=== PATIENT | male | born 1955 | race Caucasian/White ===

== ENCOUNTER 2019-05-02 03:27 | Inpatient (IN) | payer MEDICAID, MEDICARE, OTHER ==
[~2019-05-02] VITALS: Ht 162.6 cm; Wt 58.1 kg
[2019-05-02] VITALS (18 sets, daily range): BP systolic 118–159; BP diastolic 63–96
[2019-05-02] MEDS ORDERED: THIA100T66 PO (04:05)
[2019-05-02] MEDS ORDERED: SPIR50TA5 PO (04:05)
[2019-05-02] MEDS ORDERED: ALLO100T PO (04:05)
[2019-05-02] MEDS ORDERED: PROP10TA10 PO (04:05)
[2019-05-02] MEDS ORDERED: OMEP40CA13 PO (04:05)
[2019-05-02] MEDS ORDERED: FOLIC ACID PO (04:05)
[2019-05-02] MEDS ORDERED: MULT-933 PO (04:05)
[2019-05-02] MEDS ORDERED: FURO-150 PO (04:05)
[2019-05-02] MEDS: diatr meglu/diatrizoate 30ml oral sol.-(3 dose) bottle PO SCH ×3 (04:18→05:40)
[2019-05-02 04:21] LABS: BASOPHILS # (AUTO) 0.1 X10'3 (0-0.2); BASOPHILS % (AUTO) 0.7 % (0-1); EOSINOPHILS # (AUTO) 0.7 X10'3 (0-0.9); EOSINOPHILS % (AUTO) 5.7 % (0-6); HEMATOCRIT 38.8 % (42.0-52.0); HEMOGLOBIN 12.9 g/dl (14.0-17.9); LYMPHOCYTES # (AUTO) 2.1 X10'3 (1.1-4.8); LYMPHOCYTES % (AUTO) 18.3 % (21-51); MEAN CORPUSCULAR HEMOGLOBIN 33.2 PG (27.0-31.0); MEAN CORPUSCULAR HGB CONC 33.2 g/dL (33.0-36.5); MEAN CORPUSCULAR VOLUME 99.8 FL (78-98); MEAN PLATELET VOLUME 8.6 FL (7.4-10.4); MONOCYTES # (AUTO) 1.1 X10'3 (0-0.9); MONOCYTES % (AUTO) 9.7 % (2-12); NEUTROPHILS # (AUTO) 7.6 X10'3 (1.8-7.7); NEUTROPHILS % (AUTO) 65.6 % (42-75); PLATELET COUNT 314 X10'3 (140-440); RED BLOOD COUNT 3.89 X10'6 (4.70-6.10); WHITE BLOOD COUNT 11.6 X10'3 (4.5-11.0)
[2019-05-02 04:35] LABS: ALANINE AMINOTRANSFERASE 21 U/L (12-78); ALBUMIN 3.1 G/DL (3.4-5.0); ALBUMIN/GLOBULIN RATIO 0.5 (1.1-1.5); ALKALINE PHOSPHATASE 107 IU/L (46-116); ANION GAP 10 (8-16); ASPARTATE AMINO TRANSFERASE 29 U/L (10-37); BILIRUBIN,TOTAL 0.6 MG/DL (0.1-1.0); BLOOD UREA NITROGEN 22 MG/DL (7-18); BUN/CREATININE RATIO 19.3 (5.4-32.0); CALCIUM 9.5 MG/DL (8.5-10.1); CHLORIDE 102 MMOL/L (99-107); CREATININE 1.14 MG/DL (0.60-1.10); GLUCOSE 110 MG/DL (70-104); LIPASE 105 U/L (73-393); POTASSIUM 3.9 MMOL/L (3.5-5.1); SODIUM 134 MMOL/L (135-145); TOTAL CARBON DIOXIDE 22.4 MMOL/L (24-32); TOTAL PROTEIN 9.1 G/DL (6.4-8.2); eGFR 64 ML/MIN
[2019-05-02] MEDS ORDERED: iohexol 300mg/ml 100ml inj. ONE (04:40)
--- NOTE | 2019-05-02 04:51 | NUR ---
Dr Quintana called and asked why the patient hasn't gone to CT yet. I told him the doctor ordered the CT with gastrograffin. He told me to skip the med and take that patient to CT STAT that he will be here in 10 minutes. Rosendo from CT called. He is on the way.
--- NOTE | 2019-05-02 05:09 | NUR ---
Dr Su just finished examining the patient.
[2019-05-02] MEDS ORDERED: ceFAZolin 2gm in dextrose, iso 100 ML IV ONE (05:20)
[2019-05-02] MEDS ORDERED: SPIR100T5 PO (05:24)
[2019-05-02] MEDS ORDERED: ringers solution, lacted 1,000 ML IV SCH (05:26)
[2019-05-02] MEDS ORDERED: morphine 4 MG/ML inj SYRINge IV PRN ×2 (05:30)
[2019-05-02] MEDS ORDERED: hydrALAZINE 20mg/ml inj. IV PRN (05:30)
[2019-05-02] MEDS ORDERED: fentaNYL/PF 50MCG/1 ML 2ML syringe IV PRN ×2 (05:30)
[2019-05-02] MEDS ORDERED: labetalol 20mg/4ml (5mg/ml) syringe IV PRN (05:30)
[2019-05-02] MEDS ORDERED: mag hydrox/Alum hydrox/simeth 30ml oral suspension PO PRN (05:30)
[2019-05-02] MEDS ORDERED: acetaminophen 325mg tablet PO PRN (05:30)
[2019-05-02] MEDS ORDERED: ondansetron/PF 4mg/2ml inj IV PRN ×3 (05:30→08:00)
[2019-05-02] MEDS ORDERED: morphine 2 MG/ML inj. syringe IV PRN (05:30)
[2019-05-02] MEDS ORDERED: magnesium hydroxide 30ml (MOM) UD suspension PO PRN (05:30)
[2019-05-02] MEDS: normal saline 1000ml 1,000 ML IV SCH ×3 (05:40→17:50)
[2019-05-02] MEDS ORDERED: ceFAZolin 1000mg inj ONE (05:55)
[2019-05-02] MEDS ORDERED: BUPIVAcaine/PF 2.5 mg/ml (0.25%) 30ml vial ONE (05:55)
[2019-05-02] MEDS ORDERED: midazolam 2 mg/2 ml injection ONE (06:08)
[2019-05-02] MEDS ORDERED: fentaNYL/PF 50MCG/1 ML 2ML syringe ONE (06:08)
[2019-05-02] MEDS ORDERED: LIDOcaine 1%/PF 5ML 10 MG/ML VIAL ONE (06:11)
[2019-05-02] MEDS ORDERED: glycopyrrolate 0.2mg/ml inj ONE (06:11)
[2019-05-02] MEDS ORDERED: propofol inj 20 ML IV ONE (06:11)
[2019-05-02] MEDS ORDERED: ondansetron/PF 4mg/2ml inj ONE (06:11)
[2019-05-02] MEDS ORDERED: neostigmine methylsulfate 1 MG/ML 10ml vial ONE (06:11)
[2019-05-02] MEDS ORDERED: dexamethasone sod phosphate 4mg/ml inj. ONE (06:11)
[2019-05-02] MEDS ORDERED: rocuronium 10mg/ml inj IV ONE (06:11)
--- NOTE | 2019-05-02 06:11 | NUR ---
SBAR to [employer]
[2019-05-02] MEDS ORDERED: sevoflurane 250ml liquid IH ONE (06:28)
[2019-05-02] MEDS ORDERED: phenylephrine 10mg/ml inj. ONE (06:44)
[2019-05-02] MEDS ORDERED: sugammadex 200mg/2ml injection IV ONE (07:47)
[2019-05-02] MEDS: spironolactone 50 MG tablet PO SCH (08:00)
[2019-05-02] MEDS: piperacillin/tazo 3.375gm/50ml 50 ML IV SCH ×3 (08:00→23:47)
[2019-05-02] MEDS ORDERED: cefazolin/dext.iso 2gm/100ml 100 ML IV SCH (08:00)
--- NOTE | 2019-05-02 08:04 | NUR ---
Received from OR via SURGICAL BED , accompanied by Anesthesiologist ROHAN and report given by Anesthesiolgist. PATIENT WITH 20G PIV IN LEFT UE RUNNING LR AT 100. DENIES PAIN. 3 ABDOMINAL DRESSINGS ARE CDI. ONE MIDLINE ISLAND DRESSING IS CDI AND ABDOMINAL BINDER PRESENT. 10L MASK ON WITH VSS. SCDS DONNED WELL WARMING BLANKET. Addendum: 05/02/19 at 0815 by Miguel Douglas RN, RN Amended: Links added.
--- NOTE | 2019-05-02 09:04 | NUR ---
ALL CRITERIA FOR TRANSFER TO THE FLOOR HAS BEEN ACHIEVED. VSS. BED LOW, CALL LIGHT AND VS. SET IN PLACE. RN PRESENT TO ACCEPT CARE. PATIENT RESTING COMFORTABLY IN BED. BELONGINGS SENT WITH PATIENT. DRESSINGS CDI.ONE LARGE BAG OF BELONGINGS SENT WITH PATIENT. Addendum: 05/02/19 at 0914 by Miguel Douglas RN, RN Amended: Links added.
--- NOTE | 2019-05-02 09:15 | NUR ---
Arrived to room 310 at this time, POSTOP VS began.
--- NOTE | 2019-05-02 09:15 | NUR ---
Noted patient pain to be trending down after Morphine, appears comfortable, midline incision dressing clean,dry, intact. Plans to transfer to Surgical floor when bed opens up.
[2019-05-02] MEDS: morphine 2 MG/ML inj. syringe IV PRN ×3 (09:20→17:49)
[2019-05-02] MEDS ORDERED: potassium Cl 20 mEq SR tablet PO PRN ×2 (09:35)
[2019-05-02] MEDS ORDERED: magnesium Cl slow-release 64mg tablet PO PRN (09:35)
[2019-05-02] MEDS ORDERED: potassium CL 10mEq/100ml bag 100 ML IV PRN (09:35)
[2019-05-02] MEDS ORDERED: magnesium 4gm in 100ml NS 100 ML IV PRN (09:35)
[2019-05-02] MEDS: propranolol 10mg tablet PO SCH ×3 (10:19→21:00)
--- NOTE | 2019-05-02 10:48 | NUR ---
Problems reprioritized. Patient report given, questions answered & plan of care reviewed with Simran CHAVEZ.
--- NOTE | 2019-05-02 10:50 | NUR ---
Gave report to Simran CHAVEZ.
--- NOTE | 2019-05-02 11:10 | NUR ---
Transferred patient to Surgical floor.
--- NOTE | 2019-05-02 11:33 | NUR ---
Patient to room 354 A. Received patient report from KATHY Fernandez. BLL, call light in reach.
--- NOTE | 2019-05-02 18:21 | NUR ---
Problems reprioritized. Patient report given, questions answered & plan of care reviewed with KATHY Bourgeois.
--- NOTE | 2019-05-02 18:40 | NUR ---
Patient in room [facility]. I have received report from Simran CHAVEZ and had the opportunity to ask questions and assume patient care.
[2019-05-03] VITALS: BP 113/64
[2019-05-03] MEDS: normal saline 1000ml 1,000 ML IV SCH ×3 (01:57→21:50)
[2019-05-03] MEDS: morphine 2 MG/ML inj. syringe IV PRN ×4 (03:16→21:46)
[2019-05-03 04:28] VITALS: BP 100/58
[2019-05-03 06:08] LABS: BASOPHILS % (AUTO) 0.2 % (0-1); EOSINOPHILS % (AUTO) 0.1 % (0-6); HEMATOCRIT 34.9 % (42.0-52.0); HEMOGLOBIN 11.6 g/dl (14.0-17.9); LYMPHOCYTES # (AUTO) 1.4 X10'3 (1.1-4.8); LYMPHOCYTES % (AUTO) 10.4 % (21-51); MEAN CORPUSCULAR HEMOGLOBIN 33.7 PG (27.0-31.0); MEAN CORPUSCULAR HGB CONC 33.3 g/dL (33.0-36.5); MEAN CORPUSCULAR VOLUME 101.1 FL (78-98); MEAN PLATELET VOLUME 8.3 FL (7.4-10.4); MONOCYTES # (AUTO) 1.4 X10'3 (0-0.9); MONOCYTES % (AUTO) 10.8 % (2-12); NEUTROPHILS # (AUTO) 10.2 X10'3 (1.8-7.7); NEUTROPHILS % (AUTO) 78.5 % (42-75); PLATELET COUNT 265 X10'3 (140-440); RED BLOOD COUNT 3.45 X10'6 (4.70-6.10); RED CELL DISTRIBUTION WIDTH 14.8 % (11.5-14.5)
--- NOTE | 2019-05-03 06:14 | NUR ---
gave report to Vishal CHAVEZ pt is awake and alert on RA watching tv in no apparent distress, call light and items of freq use within reach.
--- NOTE | 2019-05-03 06:18 | NUR ---
Patient in room [facility] 354. I have received report from Carrie CHAVEZ and had the opportunity to ask questions and assume patient care.
[2019-05-03 06:21] LABS: ALANINE AMINOTRANSFERASE 16 U/L (12-78); ALBUMIN 2.4 G/DL (3.4-5.0); ALBUMIN/GLOBULIN RATIO 0.5 (1.1-1.5); ALKALINE PHOSPHATASE 68 IU/L (46-116); ANION GAP 8 (8-16); ASPARTATE AMINO TRANSFERASE 27 U/L (10-37); BILIRUBIN,TOTAL 0.8 MG/DL (0.1-1.0); BLOOD UREA NITROGEN 18 MG/DL (7-18); BUN/CREATININE RATIO 15.7 (5.4-32.0); CALCIUM 8.7 MG/DL (8.5-10.1); CHLORIDE 106 MMOL/L (99-107); CREATININE 1.15 MG/DL (0.60-1.10); GLUCOSE 103 MG/DL (70-104); MAGNESIUM 1.5 MG/DL (1.5-2.4); PHOSPHORUS 4.1 MG/DL (2.3-4.5); POTASSIUM 4.4 MMOL/L (3.5-5.1); SODIUM 136 MMOL/L (135-145); TOTAL CARBON DIOXIDE 21.7 MMOL/L (24-32); TOTAL PROTEIN 7.2 G/DL (6.4-8.2); eGFR 64 ML/MIN
[2019-05-03 07:00] VITALS: BP 96/58
[2019-05-03] MEDS: piperacillin/tazo 3.375gm/50ml 50 ML IV SCH ×2 (07:21→16:13)
[2019-05-03] MEDS: propranolol 10mg tablet PO SCH ×3 (08:00→21:37)
[2019-05-03 08:58] VITALS: BP 112/58
[2019-05-03] MEDS: spironolactone 50 MG tablet PO SCH (09:03)
[2019-05-03 11:00] VITALS: BP 131/68
--- NOTE | 2019-05-03 15:50 | NUR ---
Patient walked with assist x 2 laps, tolerated well
--- NOTE | 2019-05-03 17:00 | NUR ---
Changed dressing on patient's midline abdomen, tolerated well
--- NOTE | 2019-05-03 18:40 | NUR ---
Patient in room [facility]. I have received report from Vishal CHAVEZ and had the opportunity to ask questions and assume patient care. Patient finishing dinner, will continue to monitor.
--- NOTE | 2019-05-03 18:42 | NUR ---
Problems reprioritized. Patient report given, questions answered & plan of care reviewed with Theresa CHAVEZ.
[2019-05-03 19:00] VITALS: BP 135/66
[2019-05-03] MEDS: heparin, porcine 5000 units/ml vial SQ SCH (21:36)
[2019-05-03] MEDS: lactobacillus rhamnosus 10,000 MMU CELLS/CAPSULE PO SCH (21:37)
[2019-05-04] VITALS: BP 142/71
[2019-05-04] MEDS: piperacillin/tazo 3.375gm/50ml 50 ML IV SCH ×3 (00:15→16:22)
[2019-05-04 04:49] LABS: BASOPHILS # (AUTO) 0.1 X10'3 (0-0.2); BASOPHILS % (AUTO) 0.5 % (0-1); EOSINOPHILS # (AUTO) 0.3 X10'3 (0-0.9); EOSINOPHILS % (AUTO) 2.6 % (0-6); HEMATOCRIT 35.4 % (42.0-52.0); HEMOGLOBIN 11.9 g/dl (14.0-17.9); LYMPHOCYTES # (AUTO) 2.3 X10'3 (1.1-4.8); LYMPHOCYTES % (AUTO) 19.6 % (21-51); MEAN CORPUSCULAR HEMOGLOBIN 34.3 PG (27.0-31.0); MEAN CORPUSCULAR HGB CONC 33.7 g/dL (33.0-36.5); MEAN CORPUSCULAR VOLUME 101.6 FL (78-98); MEAN PLATELET VOLUME 8.7 FL (7.4-10.4); MONOCYTES # (AUTO) 1.4 X10'3 (0-0.9); MONOCYTES % (AUTO) 12.1 % (2-12); NEUTROPHILS # (AUTO) 7.6 X10'3 (1.8-7.7); NEUTROPHILS % (AUTO) 65.2 % (42-75); PLATELET COUNT 262 X10'3 (140-440); RED BLOOD COUNT 3.48 X10'6 (4.70-6.10); RED CELL DISTRIBUTION WIDTH 14.2 % (11.5-14.5); WHITE BLOOD COUNT 11.7 X10'3 (4.5-11.0)
[2019-05-04 05:05] LABS: ALANINE AMINOTRANSFERASE 15 U/L (12-78); ALBUMIN 2.2 G/DL (3.4-5.0); ALBUMIN/GLOBULIN RATIO 0.5 (1.1-1.5); ALKALINE PHOSPHATASE 61 IU/L (46-116); ANION GAP 9 (8-16); ASPARTATE AMINO TRANSFERASE 25 U/L (10-37); BILIRUBIN,TOTAL 0.8 MG/DL (0.1-1.0); BLOOD UREA NITROGEN 13 MG/DL (7-18); BUN/CREATININE RATIO 13.4 (5.4-32.0); CALCIUM 8.5 MG/DL (8.5-10.1); CHLORIDE 108 MMOL/L (99-107); CREATININE 0.97 MG/DL (0.60-1.10); GLUCOSE 82 MG/DL (70-104); MAGNESIUM 1.3 MG/DL (1.5-2.4); PHOSPHORUS 2.6 MG/DL (2.3-4.5); POTASSIUM 3.8 MMOL/L (3.5-5.1); SODIUM 137 MMOL/L (135-145); TOTAL CARBON DIOXIDE 20.5 MMOL/L (24-32); TOTAL PROTEIN 6.9 G/DL (6.4-8.2); eGFR 77 ML/MIN
--- NOTE | 2019-05-04 06:30 | NUR ---
Patient in room [facility]. I have received report from KATHY Cardenas and damien Sullivan RN and had the opportunity to ask questions and assume patient care.
[2019-05-04 07:30] VITALS: BP 131/69
[2019-05-04] MEDS: propranolol 10mg tablet PO SCH ×3 (07:35→21:47)
[2019-05-04] MEDS: lactobacillus rhamnosus 10,000 MMU CELLS/CAPSULE PO SCH ×2 (07:35→21:47)
[2019-05-04] MEDS: spironolactone 50 MG tablet PO SCH (07:35)
[2019-05-04] MEDS: heparin, porcine 5000 units/ml vial SQ SCH ×2 (07:36→21:48)
[2019-05-04] MEDS: morphine 2 MG/ML inj. syringe IV PRN ×4 (07:37→22:10)
--- NOTE | 2019-05-04 10:40 | NUR ---
pt c/o heartburn. Maalox administered, will continue to monitor.
[2019-05-04 11:00] VITALS: BP 133/74
[2019-05-04] MEDS: normal saline 1000ml 1,000 ML IV SCH (16:25)
--- NOTE | 2019-05-04 17:11 | NUR ---
Abdominal midline dressing changed per written orders
--- NOTE | 2019-05-04 18:19 | NUR ---
Problems reprioritized. Patient report given, questions answered & plan of care reviewed with KATHY Cardenas and damien Sullivan RN.
--- NOTE | 2019-05-04 18:20 | NUR ---
Patient in room [facility]. I have received report from Bridget CHAVEZ and had the opportunity to ask questions and assume patient care. Patient working on dinner, stating minimal appetite, educated about normal post-op abd surgery will continue to monitor.
[2019-05-04 19:00] VITALS: BP 120/68
[2019-05-05] VITALS: BP 119/71
[2019-05-05] MEDS: piperacillin/tazo 3.375gm/50ml 50 ML IV SCH ×2 (00:37→07:26)
[2019-05-05 05:11] LABS: BASOPHILS # (AUTO) 0.1 X10'3 (0-0.2); BASOPHILS % (AUTO) 0.6 % (0-1); EOSINOPHILS # (AUTO) 0.4 X10'3 (0-0.9); HEMATOCRIT 36.8 % (42.0-52.0); HEMOGLOBIN 12.3 g/dl (14.0-17.9); LYMPHOCYTES # (AUTO) 1.7 X10'3 (1.1-4.8); LYMPHOCYTES % (AUTO) 13.2 % (21-51); MEAN CORPUSCULAR HEMOGLOBIN 33.9 PG (27.0-31.0); MEAN CORPUSCULAR HGB CONC 33.5 g/dL (33.0-36.5); MEAN CORPUSCULAR VOLUME 101.3 FL (78-98); MONOCYTES # (AUTO) 1.4 X10'3 (0-0.9); MONOCYTES % (AUTO) 11.2 % (2-12); NEUTROPHILS # (AUTO) 9.2 X10'3 (1.8-7.7); PLATELET COUNT 262 X10'3 (140-440); RED BLOOD COUNT 3.63 X10'6 (4.70-6.10); RED CELL DISTRIBUTION WIDTH 14.7 % (11.5-14.5); WHITE BLOOD COUNT 12.7 X10'3 (4.5-11.0)
[2019-05-05 05:37] LABS: ALANINE AMINOTRANSFERASE 13 U/L (12-78); ALBUMIN 2.3 G/DL (3.4-5.0); ALBUMIN/GLOBULIN RATIO 0.5 (1.1-1.5); ALKALINE PHOSPHATASE 79 IU/L (46-116); ANION GAP 8 (8-16); ASPARTATE AMINO TRANSFERASE 24 U/L (10-37); BILIRUBIN,TOTAL 0.8 MG/DL (0.1-1.0); BLOOD UREA NITROGEN 8 MG/DL (7-18); CALCIUM 9.2 MG/DL (8.5-10.1); CHLORIDE 107 MMOL/L (99-107); GLUCOSE 96 MG/DL (70-104); MAGNESIUM 1.5 MG/DL (1.5-2.4); PHOSPHORUS 2.7 MG/DL (2.3-4.5); SODIUM 136 MMOL/L (135-145); TOTAL CARBON DIOXIDE 21.2 MMOL/L (24-32); TOTAL PROTEIN 6.9 G/DL (6.4-8.2); eGFR 75 ML/MIN
--- NOTE | 2019-05-05 06:19 | NUR ---
Patient in room [facility]. I have received report from KATHY Cardenas and damien Sullivan RN and had the opportunity to ask questions and assume patient care.
--- NOTE | 2019-05-05 06:38 | NUR ---
Problems reprioritized. Patient report given, questions answered & plan of care reviewed with Bridget CHAVEZ.
[2019-05-05 07:00] VITALS: BP 100/67
[2019-05-05] MEDS: lactobacillus rhamnosus 10,000 MMU CELLS/CAPSULE PO SCH (07:26)
[2019-05-05] MEDS: propranolol 10mg tablet PO SCH ×2 (07:26→13:00)
[2019-05-05] MEDS: spironolactone 50 MG tablet PO SCH (07:26)
[2019-05-05] MEDS: heparin, porcine 5000 units/ml vial SQ SCH (07:27)
[2019-05-05] MEDS: morphine 2 MG/ML inj. syringe IV PRN (08:55)
[2019-05-05] MEDS: normal saline 1000ml 1,000 ML IV SCH (09:02)
[2019-05-05] MEDS ORDERED: HYDROcodone/acetaminophen 5mg/325mg tablet PO PRN (09:20)
[2019-05-05] MEDS ORDERED: AMOX-419 PO (09:57)
[2019-05-05] MEDS ORDERED: LACT1CAP26 PO (09:57)
[2019-05-05 11:00] VITALS: BP 109/61
[2019-05-05] MEDS ORDERED: HYDR-4383 PO (11:09)
--- NOTE | 2019-05-05 14:46 | NUR ---
Pt discharged to home with all belongings. Discharge instructions and medications reviewed. New prescriptions called to [facility] in [place], and pt provided with triplicate for pain medication prescription. Pt instructed to follow up with Dr Quintana within 1 week and office number provided. IV DC'd, cannula intact. Pt escorted to front lobby by PCT.
== END 2019-05-05 13:15 | disposition home or self-care (01) | DRG 354 ==
LOC: ER 03:27 → MED 3N 05:55 → CMPBEDREQ 06:15 → MED 3N 07:58 → SUR 3N 11:14
PROVIDERS: ADMIT Internal Medicine; ATTEND Family Medicine
PROC: 0WJF4ZZ Inspection of Abdominal Wall, Percutaneous Endoscopic Approach (ICD-10-PCS; 2019-05-02)
PROC: BW211ZZ Computerized Tomography (CT Scan) of Abdomen and Pelvis using Low Osmolar Contrast (ICD-10-PCS; 2019-05-02)
PROC: 0WQF0ZZ Repair Abdominal Wall, Open Approach (ICD-10-PCS; principal; 2019-05-02 06:28)
DX: K42.0 Umbilical hernia with obstruction, without gangrene (principal); E44.0 Moderate protein-calorie malnutrition; K56.7 Ileus, unspecified; K55.9 Vascular disorder of intestine, unspecified; F10.10 Alcohol abuse, uncomplicated; F17.200 Nicotine dependence, unspecified, uncomplicated; I10 Essential (primary) hypertension; J43.9 Emphysema, unspecified; K70.31 Alcoholic cirrhosis of liver with ascites; M10.9 Gout, unspecified; R33.9 Retention of urine, unspecified; Z68.22 Body mass index [BMI] 22.0-22.9, adult; Z71.6 Tobacco abuse counseling; Z79.899 Other long term (current) drug therapy
CPT/HCPCS: 36415; 74177; 80053; 82948; 83605; 83690; 83735; 84100; 85025; 85610; 87070; 87075; 87081; 99285; A4215; A4618; A7000; C1758; C9399; G0378; J0690; J1100; J1644; J2250; J2270; J2370; J2405; J2543; J2704; J2710; J3010; J3490; J7030; J7120; Q9963; Q9967

== ENCOUNTER 2021-07-04 15:32 | Emergency (ER) | payer OTHER, MEDICARE ==
[~2021-07-04] VITALS: Ht 165.1 cm; Wt 50.0 kg
[~2021-07-04 15:32] MED LIST: ALLO100T PO; FOLIC ACID PO; FURO-150 PO; HYDR-4383 PO; LACT1CAP26 PO; MULT-933 PO; OMEP40CA21 PO; PROP10TA10 PO; SPIR100T5 PO; THIA100T66 PO
--- NOTE | 2021-07-04 15:49 | NUR ---
louie [phone] son
[2021-07-04 16:49] LABS: BASOPHILS % (AUTO) 0.3 % (0-1); EOSINOPHILS % (AUTO) 0.3 % (0-6); HEMATOCRIT 43.8 % (42.0-52.0); HEMOGLOBIN 14.9 g/dl (14.0-17.9); LYMPHOCYTES # (AUTO) 0.8 X10'3 (1.1-4.8); LYMPHOCYTES % (AUTO) 9.7 % (21-51); MEAN CORPUSCULAR HEMOGLOBIN 33.9 PG (27.0-31.0); MEAN CORPUSCULAR VOLUME 99.6 FL (78-98); MEAN PLATELET VOLUME 8.7 FL (7.4-10.4); MONOCYTES # (AUTO) 0.6 X10'3 (0-0.9); MONOCYTES % (AUTO) 6.8 % (2-12); NEUTROPHILS # (AUTO) 6.9 X10'3 (1.8-7.7); NEUTROPHILS % (AUTO) 82.9 % (42-75); PLATELET COUNT 330 X10'3 (140-440); RED CELL DISTRIBUTION WIDTH 12.7 % (11.5-14.5); WHITE BLOOD COUNT 8.3 X10'3 (4.5-11.0)
[2021-07-04 17:05] LABS: ALANINE AMINOTRANSFERASE 48 U/L (12-78); ALBUMIN 2.3 G/DL (3.4-5.0); ALBUMIN/GLOBULIN RATIO 0.4 (1.1-1.5); ALKALINE PHOSPHATASE 221 IU/L (46-116); ANION GAP 13 (8-16); ASPARTATE AMINO TRANSFERASE 67 U/L (10-37); BILIRUBIN,TOTAL 0.9 MG/DL (0.1-1.0); BLOOD UREA NITROGEN 22 MG/DL (7-18); CALCIUM 9.2 MG/DL (8.5-10.1); CHLORIDE 99 MMOL/L (99-107); GLUCOSE 259 MG/DL (70-104); LIPASE 50 U/L (73-393); SODIUM 139 MMOL/L (135-145); TOTAL CARBON DIOXIDE 27.2 MMOL/L (24-32); TOTAL PROTEIN 8.7 G/DL (6.4-8.2); eGFR 67 ML/MIN
[2021-07-04] MEDS ORDERED: BENZ-16 PO (17:48)
[2021-07-04] MEDS ORDERED: ALBU8HFA PO (17:48)
[2021-07-04] MEDS ORDERED: CASIRIVIMAB/IMDEVIMAB inject. 10 ML in normal saline 100ml IV soln 100 ML IV ONE (18:30)
[2021-07-04] MEDS ORDERED: acetaminophen 325mg tablet PO ONE (20:45)
[2021-07-04] MEDS ORDERED: acetaminophen 325mg tablet ONE (21:06)
[2021-07-04 21:33] VITALS: BP 129/83
== END 2021-07-04 21:30 | disposition home or self-care (01) ==
LOC: ER 15:33
DX: U07.1 COVID-19 (principal); J12.82 Pneumonia due to coronavirus disease 2019; R05.9 Cough, unspecified; R53.83 Other fatigue; R50.9 Fever, unspecified; I10 Essential (primary) hypertension; J43.9 Emphysema, unspecified; F17.200 Nicotine dependence, unspecified, uncomplicated; Z72.89 Other problems related to lifestyle; Z98.890 Other specified postprocedural states; Z79.899 Other long term (current) drug therapy
CPT/HCPCS: 36415; 71045; 80053; 83690; 85025; 87635; 99285; C9803; M0243; Q0244